=== PATIENT | female | born 1960 | race Caucasian/White ===

== ENCOUNTER 2018-11-06 13:46 | Emergency (ER) | payer OTHER ==
[~2018-11-06] VITALS: Ht 170.2 cm; Wt 93.2 kg
[2018-11-06] MEDS ORDERED: ASPI81TA85 PO (14:34)
[2018-11-06 15:04] LABS: BASO # 0.1 10^3/uL (0.0-0.2); BASO % 0.6 % (0.0-1.0); EOS # 0.2 10^3/uL (0.0-0.50); EOS % 1.8 % (0.0-3.0); HEMATOCRIT 42.9 % (36.0-47.0); HEMOGLOBIN 13.9 g/dl (12.0-15.5); LYMPH # 2.3 10^3/uL (1.5-4.5); LYMPH % 27.1 % (24.0-44.0); MEAN CORPUSCULAR HEMOGLOBIN 28.9 pg (27.0-33.0); MEAN CORPUSCULAR HGB CONC 32.4 g/dl (32.0-36.5); MEAN CORPUSCULAR VOLUME 89.2 fl (80.0-96.0); MONO # 0.6 10^3/uL (0.0-0.8); MONO % 7.4 % (0.0-5.0); NEUTROPHILS # 5.3 10^3/uL (1.8-7.7); NEUTROPHILS % 62.9 % (36.0-66.0); PLATELET COUNT, AUTOMATED 596 10^3/uL (150-450); RED BLOOD COUNT 4.81 10^6/uL (4.00-5.40); WHITE BLOOD COUNT 8.4 10^3/uL (4.0-10.0)
[2018-11-06 15:16] LABS: INR 1.21; PROTHROMBIN TIME 15.5 SECONDS (12.1-14.4)
[2018-11-06 15:17] LABS: PARTIAL THROMBOPLASTIN TIME 57.4 SECONDS (25.4-37.6)
[2018-11-06 15:27] LABS: HCG, SERUM QUALITATIVE NEGATIVE (NEGATIVE)
[2018-11-06 15:36] LABS: ALT/SGPT 2315 U/L (12-78); AMYLASE 44 U/L (25-115); BILIRUBIN,DIRECT 0.4 MG/DL (0.0-0.2); BLOOD UREA NITROGEN 11 MG/DL (7-18); CALCIUM LEVEL 9.1 MG/DL (8.5-10.1); CARBON DIOXIDE LEVEL 27 MEQ/L (21-32); CHLORIDE LEVEL 103 MEQ/L (98-107); CREATININE FOR GFR 0.81 MG/DL (0.55-1.30); GLOMERULAR FILTRATION RATE > 60.0 (>51); GLUCOSE, FASTING 93 MG/DL (70-100); LIPASE 134 U/L (73-393); POTASSIUM SERUM 3.6 MEQ/L (3.5-5.1); SODIUM LEVEL 135 MEQ/L (136-145); TOTAL PROTEIN 10.1 GM/DL (6.4-8.2)
[2018-11-06] MEDS ORDERED: ISOVUE-370 76% 100ML VIAL (Q9967) As Ordered ONE (15:56)
--- NOTE | 2018-11-06 16:33 | REP ---
CT of the abdomen and pelvis with IV contrast, without bowel contrast for elevated liver function tests: The hepatic visualized lung north are unremarkable. There is a 1.8-cm gallbladder calculus with rim calcification. The gallbladder is otherwise unremarkable. There is no biliary duct dilatation. The pancreas and spleen are unremarkable. The adrenals, kidneys and abdominal aorta are unremarkable. There is no bowel distension or obstruction. The mesentery is unremarkable. Pelvis: The appendix is unremarkable. The uterus, adnexa and bladder are unremarkable. There is no adenopathy or ascites. There is wall thickening of the descending colon and sigmoid colon. This is nonspecific but could represent colitis in the appropriate clinical setting. Impression: Gallbladder calculus. The gallbladder is otherwise unremarkable. Wall thickening of the descending colon and sigmoid colon, nonspecific, compatible with colitis in the appropriate clinical setting. No adenopathy or ascites. Otherwise, essentially negative CT of the abdomen and pelvis. Electronically Signed by Gaurang Talavera MD 11/06/2018 04:24 P
--- NOTE | 2018-11-06 16:38 | REP ---
Abdominal right upper quadrant ultrasound for abnormal liver function tests: There is a negative Zavala's sign. There is a gallbladder calculus. The gallbladder is contracted on the calculus. There is no pericholecystic fluid. Gallbladder wall thickness cannot be measured because of the contracted state of the gallbladder. There is no intrahepatic or extrahepatic biliary duct dilatation. The common biliary duct measures 2.8 mm in diameter. The hepatic parenchyma is diffusely echogenic compatible with hepato steatosis. There are no hepatic masses. The visualized hepatic parenchyma is unremarkable. There is no right renal calculus, hydronephrosis, mass or cyst. The right kidney is normal size measuring 11.8 x 5.7 x 5.4 cm. There is no right upper quadrant ascites. Impression: Gallbladder calculus. Contracted gallbladder. Hepato steatosis. Electronically Signed by Gaurang Talavera MD 11/06/2018 04:29 P
[2018-11-06 18:01] VITALS: BP 126/58
--- NOTE | 2018-11-06 18:59 | ED PDOC ---
Post-Departure Follow-Up ft jesus nichols faxed formal report of us for fu Mehrdad Marti MD Nov 06, 2018 18:59
== END 2018-11-06 18:02 | disposition home or self-care (01) ==
LOC: M ED 13:46
DX: R94.5 Abnormal results of liver function studies (principal); K21.9 Gastro-esophageal reflux disease without esophagitis; K80.20 Calculus of gallbladder without cholecystitis without obstruction; K76.0 Fatty (change of) liver, not elsewhere classified; Z79.82 Long term (current) use of aspirin; Z88.8 Allergy status to other drugs, medicaments and biological substances
CPT/HCPCS: 36415; 74177; 76705; 80048; 80076; 81001; 82150; 83605; 83690; 84703; 85025; 85610; 85730; 99284; Q9967

== ENCOUNTER → 2019-03-06 | Outpatient (CLI) | payer OTHER ==
[~2019-03-06] MED LIST: ASPI81TA85 PO
[2019-03-06 12:05] LABS: INR 1.1; PROTHROMBIN TIME 13.9 SECONDS (11.8-14.0)
[2019-03-06 12:24] LABS: ALBUMIN 3.9 GM/DL (3.2-5.2); ALT/SGPT 27 U/L (12-78); BILIRUBIN,DIRECT 0.1 MG/DL (0.0-0.2); BILIRUBIN,TOTAL 0.4 MG/DL (0.2-1.0); GAMMA GLUTAMYLTRANSPEPTIDASE 20 U/L (5-55); IRON (FE) 71 UG/DL (50-170); TOTAL IRON BINDING CAPACITY 373 UG/DL (250-450); TOTAL PROTEIN 8.5 GM/DL (6.4-8.2)
[2019-03-07 11:22] LABS: HEPATITIS B SURFACE ANTIGEN NEGATIVE (NEGATIVE)
[2019-03-07 11:50] LABS: HEPATITIS B CORE ANTIBODY IGM NEGATIVE (NEGATIVE); HEPATITIS C VIRUS ABY INDEX 0.1 INDEX (<0.8)
[2019-03-07 11:52] LABS: HEPATITIS A ANTIBODY IGM NEGATIVE (NEGATIVE)
[2019-03-11 00:06] LABS: ANCA-ATYPICAL <1:20 titer (Neg:<1:20); ANTI-MITOCHONDRIAL ANTIBODY <20.0 Units (0.0-20.0); ANTINUCLEAR ANTIBODIES DIRECT Negative (Negative); CERULOPLASMIN 26.7 mg/dL (19.0-39.0); CYTOPLASMIC NEUTROP AB ANCA-C <1:20 titer (Neg:<1:20); LIVER-KIDNEY MICROSOMAL ABY <20.1 Units (0.0-20.0); PERINUCLEAR AB ANCA-P <1:20 titer (Neg:<1:20); TISSUE TRANSGLUTAMINASE IgA <2 U/mL (0-3)
== END ==
LOC: M LAB 10:58
PROVIDERS: ATTEND Internal Medicine Gastroenterology
DX: R94.5 Abnormal results of liver function studies (principal)

== ENCOUNTER 2019-05-06 09:23 | Day surgery (SDC) | payer OTHER ==
[~2019-05-06] VITALS: Ht 170.2 cm; Wt 94.3 kg
[~2019-05-06 09:23] MED LIST changes: +NS 1,000 ML IV ONE
--- NOTE | 2019-05-06 11:31 | ROOR ---
Patient Name: Daphnie Garcia Procedure Date: 05/06/2019 11:16 AM Date of : 1960 Age: 58 Room: [facility] Gender: Female Note Status: Finalized Procedure: Upper GI endoscopy Indications: Generalized abdominal pain Providers: Bang TORRES MD Referring MD: IVETT ROOT MD Requesting Provider: Medicines: Monitored Anesthesia Care Complications: No immediate complications. Procedure: Pre-Anesthesia Assessment: - The heart rate, respiratory rate, oxygen saturations, blood pressure, adequacy of pulmonary ventilation, and response to care were monitored throughout the procedure. The Endoscope was introduced through the mouth, and advanced to the second part of duodenum. The upper GI endoscopy was accomplished without difficulty. The patient tolerated the procedure well. Findings: The esophagus was normal. The stomach was normal. The examined duodenum was normal. Impression: - Normal esophagus. - Normal stomach. - Normal examined duodenum. - No specimens collected. Recommendation: - Observe patient's clinical course. - Continue present medications. Bang Torres MD Bang TORRES MD 05/06/2019 11:30:59 AM Electronically signed by Bang TORRES MD Number of Addenda: 0 Note Initiated On: 05/06/2019 11:16 AM Estimated Blood Loss: Estimated blood loss: none.
--- NOTE | 2019-05-06 11:51 | ROOR ---
Patient Name: Daphnie Garcia Procedure Date: 05/06/2019 11:17 AM Date of : 1960 Age: 58 Room: [facility] Gender: Female Note Status: Finalized Procedure: Colonoscopy Indications: Generalized abdominal pain, Abnormal CT of the GI tract Providers: Bang TORRES MD Referring MD: IVETT ROOT MD Requesting Provider: Medicines: Monitored Anesthesia Care Complications: No immediate complications. Procedure: Pre-Anesthesia Assessment: - The heart rate, respiratory rate, oxygen saturations, blood pressure, adequacy of pulmonary ventilation, and response to care were monitored throughout the procedure. The Colonoscope was introduced through the anus and advanced to the terminal ileum, with identification of the appendiceal orifice and IC valve. The colonoscopy was performed without difficulty. The patient tolerated the procedure well. The quality of the bowel preparation was good. Findings: The perianal and digital rectal examinations were normal. The colon (entire examined portion) appeared normal. The terminal ileum appeared normal. Internal hemorrhoids were found during retroflexion. The hemorrhoids were medium-sized. Retroflexion in the right colon was performed. Impression: - Internal hemorrhoids. - The entire colon is normal. - The examined portion of the ileum was normal. - No specimens collected. Recommendation: - Continue present medications. - Use fiber, for example Citrucel, Fibercon, Konsyl or Metamucil. Bang Torres MD Bang TORRES MD 05/06/2019 11:50:54 AM Electronically signed by Bang TORRES MD Number of Addenda: 0 Note Initiated On: 05/06/2019 11:17 AM Estimated Blood Loss: Estimated blood loss: none.
[2019-05-06 12:15] VITALS: BP 185/94
[2019-05-06] MEDS ORDERED: LIDOCAINE 2% INJ 100 MG/5 ML SDV (FOR ANES.) As Ordered ONE (12:30)
[2019-05-06] MEDS ORDERED: PROPOFOL 200 MG/20 ML VIAL As Ordered ONE ×2 (12:30→12:31)
== END 2019-05-06 12:22 | disposition home or self-care (01) ==
LOC: M OPP 09:23
PROVIDERS: ATTEND Internal Medicine Gastroenterology
DX: K64.0 First degree hemorrhoids (principal); R10.84 Generalized abdominal pain; R93.3 Abnormal findings on diagnostic imaging of other parts of digestive tract; E55.9 Vitamin D deficiency, unspecified; D47.3 Essential (hemorrhagic) thrombocythemia; Z88.1 Allergy status to other antibiotic agents